=== PATIENT | male | born 1985 | race Two or more races ===

== ENCOUNTER 2023-09-21 12:58 | Outpatient (AMB) | payer OTHER, SELFPAY ==
--- NOTE | 2023-09-21 13:04 | HO.NEPHOV_ITS ---
HPI HPI Comments History of Present Illness Details I had the privilege of seeing Anthony who is a 38-year-old male with hypertension for well over 10 years. He is currently taking amlodipine 10 mg, carvedilol 12.5 mg twice, hydrochlorothiazide 25 mg and lisinopril 40 mg daily. Has been following current regimen for the past 10 years and tolerating well without side effects. He gets occasional headaches but denies blurry vision, chest pain, shortness of breath, edema or renal dysfunction. He had gained some weight. He is not very strict with low sodium diet. He checks blood pressure at home and is ranging from 150s to 160s over 100s diastolic.He had Doppler of renal arteries which did not show any renal artery stenosis. His 24 hour urine aldosterone was not very high. He has mild protein in the urine. He has no LVH. He denies edema, SOB, PND, orthopnea, BRIAN, PAD, CHF, CVA or carotid stenosis. He denies using drugs especially cocaine. His renal functions are normal . His serum K has been low on HCTZ. His cortisol and TSH are normal. He denied any sl eep study yet. He had no other active complaint at the time of this office visit. [facility] Medical History (Updated 09/24/23 @ 20:57 by Stanley Sutherland MD) Essential (primary) hypertension Family History (Updated 09/21/23 @ 09:16 by Pretty Glasgow MA) Mother Hypertension Father Diabetes Heart disease Hypertension Sister Thyroid disorder Social History (Updated 09/21/23 @ 13:09 by Pretty Glasgow MA) Alcohol intake: never Patient Tobacco Use Status: Never used Tobacco Substance Use Type: Marijuana Vital Signs 09/21/23 13:09 Height 5 ft 9 in Weight 254 lb 8 oz BMI 37.6 BP 122/90 H Blood Pressure Location Lt brachial Position Sitting Pulse 81 Pulse Source Pulse Oximeter Physical Exam Vital Signs: Last Vital Signs Pulse 81 09/21/23 13:09 BP 122/90 H 09/21/23 13:09 BMI result Body Mass Index 37.6 Const General: comfortable and no acute distress Orientation/consciousness: patient oriented x3 HEENT Head: Yes normocephalic Mouth: Normal oral and palatal mucosa present Eyes EOM: EOMs intact bilaterally Neck Neck: Yes supple Resp Auscultation: clear to auscultation bilaterally Cardio Jugular venous distension: no JVD Rate: regular rate GI Palpation (GI): Soft to palpation Auscultation: normal bowel sounds General: Yes no CVA tenderness Back/Spine/Pelvis Back: no CVA tenderness Skin General skin exam: no rashes or lesions noted Neuro General: patient oriented x3 and moves all extremities Extrem General: Yes no pedal edema Assessment & Plan Assessment & Plan (1) Hypertension: Code(s): I10 - Essential (primary) hypertension Qualifiers: Hypertension type: primary hypertension Qualified Code(s): I10 - Esse ntial (primary) hypertension Plan Low sodium diet; Weight loss; C/W current dose of antihypertensive medications for now. Work up ordered Will benefit from sleep study. Once work up is complete, if indicated, he may need adrenal imaging/AV sampling Shall order a 24 hour BP monitor through my office during the future follow up visits. Will add Spironolactone if BP remains high Answered all questions. Accounts Payable Bookkeeper service used. Follow up given. Time spent retrieving all data, patient encounter, documentation 43 minutes. Orders: Orders Catecholamines, Frac., 24Ur 09/21/23 I10 - Essential (primary) hypertension VMA 09/21/23 I10 - Essential (primary) hypertension Aldost/Renin 09/21/23 I10 - Essential (primary) hypertension Aldosterone, 24Hr Urine 09/21/23 I10 - Essential (primary) hypertension Cortisol, Free 24Hr Urine 09/21/23 I10 - Essential (primary) hypertension Metanephrines, 24hr Urine 09/21/23 I10 - Essential (primary) hypertension Renin 09/21/23 I10 - Essential (primary) hypertension Cortisol Random 09/21/23 I10 - Essential (primary) hypertension Aldosterone 09/21/23 I10 - Essential (primary) hypertension Coding Level of Care Code New Pt Level 4 (01845) Diagnoses Primary hypertension I10 Hypertension type: primary hypertension
[2023-09-21 13:09] VITALS: BP 122/90; PULSE 81; BMI 37.6
== END 2023-09-21 14:17 | disposition home or self-care (01) ==
PROVIDERS: PCP Internal Medicine; Visit Provider Internal Medicine Nephrology
DX: I10 Essential (primary) hypertension (principal)
CPT/HCPCS: 99204

== ENCOUNTER → 2023-09-21 12:58 | Outpatient (BNVA) | payer OTHER, SELFPAY | PROVIDERS: PCP Internal Medicine; Visit Provider Internal Medicine Nephrology | DX: I10 Essential (primary) hypertension (principal); Z82.49 Family history of ischemic heart disease and other diseases of the circulatory system | CPT/HCPCS: 99202 ==

== ENCOUNTER 2023-10-12 13:26 | Outpatient (AMB) | payer OTHER, SELFPAY ==
--- NOTE | 2023-10-12 13:55 | HO.NEPHOV_ITS ---
HPI HPI Comments History of Present Illness Details I had the privilege of seeing Atnhony in follow up. He is a a 38-year-old male with hypertension for well over 10 years. He had been taking amlodipine 10 mg, carvedilol 12.5 mg twice, hydrochlorothiazide 25 mg and li sinopril 40 mg daily. Has been following current regimen for the past 10 years and tolerating well without side effects. He gets occasional headaches but denies blurry vision, chest pain, shortness of breath, edema or renal dysfunction. He had gained some weight. He is not very strict with low sodium diet. He checks blood pressure at home and is ranging from 150s to 160s over 100s diastolic.He had Doppler of renal arteries which did not show any renal artery stenosis. His 24 hour urine aldosterone was not very high. He has mild protein in the urine. He has no LVH. He denies edema, SOB, PND, orthopnea, BRIAN, PAD, CHF, CVA or carotid stenosis. He denies using drugs especially cocaine. His renal functions are normal . His serum K has been low on HCTZ. His cortisol and TSH are normal. He denied any sleep study yet. He had no other active complaint at the time of this office visit. [facility] Medical History (Updated 09/24/23 @ 20:57 by Stanley Sutherland MD) Essential (primary) hypertension Family History (Updated 09/21/23 @ 09:16 by Pretty Glasgow MA) Mother Hypertension Father Diabetes Heart disease Hypertension Sister Thyroid disorder Social History (Updated 09/21/23 @ 13:09 by Pretty Glasgow MA) Alcohol intake: never Patient Tobacco Use Status: Never used Tobacco Substance Use Type: Marijuana Vital Signs 10/12/23 13:57 Height 5 ft 9 in Weight 251 lb 8 oz BMI 37.1 BP 140/110 H Blood Pressure Location Lt brachial Position Sitting Pulse 76 Pulse Source Pulse Oximeter Pulse Oximetry (%) 96 Oxygen Delivery Method Room Air Physical Exam Vital Signs: Last Vital Signs Pulse 76 10/12/23 13:57 BP 140/110 H 10/12/23 13:57 Pulse Ox 96 10/12/23 13:57 Oxygen Delivery Method Room Air 10/12/23 13:57 BMI result Body Mass Index 37.1 Const General: comfortable and no acute distress Orientation/consciousness: patient oriented x3 HEENT Head: Yes normocephalic Mouth: Normal oral and palatal mucosa present Eyes EOM: EOMs intact bilaterally Neck Neck: Yes supple Resp Auscultation: clear to auscultation bilaterally Cardio Jugular venous distension: no JVD Rate: regular rate GI Palpation (GI): Soft to palpation Auscultation: normal bowel sounds General: Yes no CVA tenderness Back/Spine/Pelvis Back: no CVA tenderness Skin General skin exam: no rashes or lesions noted Neuro General: patient oriented x3 and moves all extremities Extrem General: Yes no pedal edema Assessment & Plan Assessment & Plan (1) Hypertension: Code(s): I10 - Essential (primary) hypertension Qualifiers: Hypertension type: primary hypertension Qualified Code(s): I10 - Essential (primary) hypertension Plan Low sodium diet; Weight loss; C/W current dose of antihypertensive medications for now. Reviewed work up. Some results are still pending. Started him on Spironolactone 25 mg daily.Will benefit from sleep study. Once work up is complete, if indicated, he may need adrenal imaging/AV sampling. Shall order a 24 hour BP monitor through my office during the future follow up visits. Will increase Spironolactone if BP remains high. Answered all questions. Paperhanger Assistant service used. Follow up lab ordered; F/U given. Orders: Orders Creatinine Today I10 - Essential (primary) hypertension Blood Urea Nitrogen Today I10 - Essential (primary) hypertension Electrolytes Today I10 - Essential (primary) hypertension Medications: New spironolactone 25 mg PO DAILY 30 tabs 3RF 30 days Coding Level of Care Code Est Pt Level 4 (86655) Diagnoses Primary hypertension I10 Hypertension type: primary hypertension Results Reviewed Nephrology Results: No Data to Display
[2023-10-12 13:57] VITALS: BP 140/110; PULSE 76; O2SAT 96; BMI 37.1
== END 2023-10-12 14:18 | disposition home or self-care (01) ==
PROVIDERS: PCP Internal Medicine; Visit Provider Internal Medicine Nephrology
DX: I10 Essential (primary) hypertension (principal)
CPT/HCPCS: 99214

== ENCOUNTER → 2023-10-12 13:26 | Outpatient (BNVA) | payer OTHER, SELFPAY | PROVIDERS: PCP Internal Medicine; Visit Provider Internal Medicine Nephrology | DX: I10 Essential (primary) hypertension (principal) | CPT/HCPCS: 99212 ==

== ENCOUNTER 2023-10-28 13:04 | Outpatient (REF) | payer OTHER, SELFPAY | END 2023-10-28 13:05 | disposition home or self-care (01) | LOC: HO.HKASLDS 13:04 | PROVIDERS: Visit Provider Internal Medicine Nephrology | DX: I10 Essential (primary) hypertension (principal) | CPT/HCPCS: 36415; 80051; 82565; 84520 ==

== ENCOUNTER 2023-11-10 14:28 | Outpatient (AMB) | payer OTHER, SELFPAY ==
[2023-11-10 14:30] VITALS: BP 134/90; PULSE 95; O2SAT 96; BMI 37.0
--- NOTE | 2023-11-10 14:30 | HO.NEPHOV ---
HPI HPI Comments History of Present Illness Details I had the privilege of seeing Anthony in follow up. He is a a 38-year-old male with hypertension for well over 10 years. He had been taking amlodipine 10 mg, carvedilol 12.5 mg twice, hydrochlorothiazide 25 mg and lisinopril 40 mg daily. Has been following current regimen for the past 10 years and tolerating well without side effects. He had gained some weight. He is not very strict with low sodium diet. He checks blood pressure at home and had been ranging from 150s to 160s over 100s diastolic.He had Doppler of renal arteries which did not show any renal artery stenosis. His 24 hour urine aldosterone was not very high. He has mild protein in the urine. He has no LVH. He denies edema, SOB, PND, orthopnea, BRIAN, PAD, CHF, CVA or carotid stenosis. He denies using drugs especially cocaine. His renal functions are normal . His serum K has been low on HCTZ. His cortisol and TSH are normal. He denied any sleep study yet. His BP has been better controlled since initiation of Spironolactone. He had no other active complaint at the time of this office visit [facility] Medical History (Updated 09/24/23 @ 20:57 by Stanley Sutherland MD) Essential (primary) hypertension Family History Mother Hypertension Father Diabetes Heart disease Hypertension Sister Thyroid disorder Social History Alcohol intake: never Patient Tobacco Use Status: Never used Tobacco Substance Use Type: Marijuana Vital Signs 11/10/23 14:30 11/10/23 14:44 Height 5 ft 9 in Weight 250 lb 6 oz BMI 37.0 BP 134/90 H 122/84 Blood Pressure Location Lt brachial Position Sitting Pulse 95 Pulse Source Pulse Oximeter Pulse Oximetry (%) 96 Oxygen Delivery Method Room Air Physical Exam Vital Signs: Last Vital Signs Pulse 95 11/10/23 14:30 BP 122/84 11/10/23 14:44 Pulse Ox 96 11/10/23 14:30 Oxygen Delivery Method Room Air 11/10/23 14:30 BMI result Body Mass Index 37.0 Const General: comfortable and no acute distress Orientation/consciousness: patient oriented x3 HEENT Head: Yes normocephalic Mouth: Normal oral and palatal mucosa present Eyes EOM: EOMs intact bilaterally Neck Neck: Yes supple Resp Auscultation: clear to auscultation bilaterally Cardio Jugular venous distension: no JVD Rate: regular rate GI Palpation (GI): Soft to palpation Auscultation: normal bowel sounds General: Yes no CVA tenderness Back/Spine/Pelvis Back: no CVA tenderness Skin General skin exam: no rashes or lesions noted Neuro General: patient oriented x3 and moves all extremities Extrem General: Yes no pedal edema Assessment & Plan Assessment & Plan (1) Hypertension: Code(s): I10 - Essential (primary) hypertension Qualifiers: Hypertension type: primary hypertension Qualified Code(s): I10 - Essential (primary) hypertension Plan Low sodium diet; Weight loss; C/W current dose of antihypertensive medications for now. Reviewed work up. C/W Spironolactone 25 mg daily.Will benefit from sleep study. No need adrenal imaging/AV sampling now. Shall order a 24 hour BP monitor through my office during the future follow up visits. Will increase Spironolactone and will cut back on some other medications at the next visit. Answered all questions. Kindergarten Teacher Assistant service used. Follow up lab ordered; F/U given Orders: Orders Electrolytes Today I10 - Essential (primary) hypertension Blood Urea Nitrogen Today I10 - Essential (primary) hypertension Creatinine Today I10 - Essential (primary) hypertension Coding Level of Care Code Est Pt Level 3 (26697) Diagnoses Primary hypertension I10 Hypertension type: primary hypertension Results Reviewed Nephrology Results: Sodium 140 mmol/L (135-145) 10/28/23 Potassium 3.7 mmol/L (3.3-5.1) 10/28/23 Chloride 103 mmol/L (96-108) 10/28/23 Carbon Dioxide 29 mmol/L (22-29) 10/28/23 BUN 11 mg/dL (9-16) 10/28/23 Creatinine 0.95 mg/dL (0.5-1.4) 10/28/23
[2023-11-10 14:44] VITALS: BP 122/84
== END 2023-11-10 14:48 | disposition home or self-care (01) ==
PROVIDERS: PCP Internal Medicine; Visit Provider Internal Medicine Nephrology
DX: I10 Essential (primary) hypertension (principal)
CPT/HCPCS: 99213

== ENCOUNTER → 2023-11-10 14:28 | Outpatient (BNVA) | payer OTHER, SELFPAY | PROVIDERS: PCP Internal Medicine; Visit Provider Internal Medicine Nephrology | DX: I10 Essential (primary) hypertension (principal); Z79.899 Other long term (current) drug therapy | CPT/HCPCS: 99212 ==

== ENCOUNTER 2024-02-03 13:33 | Outpatient (REF) | payer OTHER, SELFPAY ==
[2024-02-03 17:48] LABS: Anion Gap 14 (12-20); Blood Urea Nitrogen 16 mg/dL (9-16); Carbon Dioxide 26 mmol/L (22-29); Chloride 105 mmol/L (96-108); Estimated Glomerular Filt Rate > 60; Potassium 4.2 mmol/L (3.3-5.1); Sodium 141 mmol/L (135-145)
== END 2024-02-03 13:34 | disposition home or self-care (01) ==
LOC: HO.HKASLDS 13:33
PROVIDERS: Visit Provider Internal Medicine Nephrology
DX: I10 Essential (primary) hypertension (principal)
CPT/HCPCS: 36415; 80051; 82565; 84520

== ENCOUNTER 2024-02-11 13:42 | Outpatient (AMB) | payer OTHER, SELFPAY ==
--- NOTE | 2024-02-11 14:20 | HO.NEPHOV_ITS ---
Vital Signs 02/11/24 14:22 Height 5 ft 9 in Weight 252 lb 2 oz BMI 37.2 BP 120/80 Blood Pressure Location Lt brachial Position Sitting Pulse 73 Pulse Source Pulse Oximeter Pulse Oximetry (%) 94 Oxygen Delivery Method Room Air Intake Visit Reasons: 3M follow up/ Confirmed Oracle Forms Developer Required: Yes Accompanied by: Self / Same As Patient Allergies No Known Allergies Allergy (Verified 02/11/24 14:23) HPI Comments Details: I had the privilege of seeing Anthony in follow up. He is a a 38-year-old male with hypertension for well over 10 years. He had been taking amlodipine 10 mg, carvedilol 12.5 mg twice, hydrochlorothiazide 25 mg and lisinopril 40 mg daily. Has been following current regimen for the past 10 years and tolerating well without side effects. He had gained some weight. He is not very strict with low sodium diet. He checks blood pressure at home and had been ranging from 150s to 160s over 100s diastolic.He had Doppler of renal arteries which did not show any renal artery stenosis. His 24 hour urine aldosterone was not very high. He has mild protein in the urine. He has no LVH. He denies edema, SOB, PND, orthopnea, BRIAN, PAD, CHF, CVA or carotid stenosis. He denies using drugs especially cocaine. His renal functions are normal . His serum K has been low on HCTZ. His cortisol and TSH are normal. He denied any sleep study yet. His BP has been better controlled since initiation of Spironolactone. He had no other active complaint at the time of this office visit [facility] Medical History (Updated 09/24/23 @ 20:57 by Stanley Sutherland MD) Essential (primary) hypertension Family History Mother Hypertension Father Diabetes Heart disease Hypertension Sister Thyroid disorder Social History Alcohol intake: never Patient Tobacco Use Status: Never used Tobacco Substance Use Type: Marijuana Physical Exam Vital Signs: Last Vital Signs Pulse 73 02/11/24 14:22 BP 130/88 02/11/24 14:22 Pulse Ox 94 02/11/24 14:22 Oxygen Delivery Method Room Air 02/11/24 14:22 BMI result Body Mass Index 37.2 Const General: comfortable and no acute distress Orientation/consciousness: patient oriented x3 HEENT Head: Yes normocephalic Mouth: Normal oral and palatal mucosa present Eyes EOM: EOMs intact bilaterally Neck Neck: Yes supple Resp Auscultation: clear to auscultation bilaterally Cardio Jugular venous distension: no JVD Rate: regular rate GI Palpation (GI): Soft to palpation Auscultation: normal bowel sounds General: Yes no CVA tenderness Back/Spine/Pelvis Back: no CVA tenderness Skin General skin exam: no rashes or lesions noted Neuro General: patient oriented x3 and moves all extremities Extrem General: Yes no pedal edema Results Reviewed Nephrology Results: Sodium 141 mmol/L (135-145) 02/03/24 Potassium 4.2 mmol/L (3.3-5.1) 02/03/24 Chloride 105 mmol/L (96-108) 02/03/24 Carbon Dioxide 26 mmol/L (22-29) 02/03/24 BUN 16 mg/dL (9-16) 02/03/24 Creatinine 0.99 mg/dL (0.5-1.4) 02/03/24 Assessment & Plan Assessment & Plan (1) Hypertension: Code(s): I10 - Essential (primary) hypertension Category: Medical Qualifiers: Hypertension type: primary hypertension Qualified Code(s): I10 - Essential (primary) hypertension Plan Low sodium diet; Weight loss; C/W current dose of antihypertensive medications for now. Reviewed work up. /W Spironolactone 25 mg daily.Will benefit from sleep study. Shall order a 24 hour BP monitor through my office during the future follow up visits, if his BP fluctuates. Will increase Spironolactone if BP remains high. Answered all questions. Follow up lab ordered; F/U given Orders: Orders Electrolytes Today I10 - Essential (primary) hypertension Creatinine Today I10 - Essential (primary) hypertension Blood Urea Nitrogen Today I10 - Essential (primary) hypertension
[2024-02-11 14:22] VITALS: BP 120/80; PULSE 73; O2SAT 94; BMI 37.2
== END 2024-02-11 14:36 | disposition home or self-care (01) ==
PROVIDERS: PCP Internal Medicine; Visit Provider Internal Medicine Nephrology
DX: I10 Essential (primary) hypertension (principal)
CPT/HCPCS: 99214

== ENCOUNTER → 2024-02-11 13:42 | Outpatient (BNVA) | payer OTHER, SELFPAY | PROVIDERS: PCP Internal Medicine; Visit Provider Internal Medicine Nephrology | DX: I10 Essential (primary) hypertension (principal) | CPT/HCPCS: 99212 ==

== ENCOUNTER 2024-06-01 12:59 | Outpatient (REF) | payer OTHER, SELFPAY ==
[2024-06-01 18:10] LABS: Anion Gap 12 (12-20); Blood Urea Nitrogen 14 mg/dL (9-16); Carbon Dioxide 28 mmol/L (22-29); Chloride 105 mmol/L (96-108); Estimated Glomerular Filt Rate > 60; Sodium 141 mmol/L (135-145)
== END 2024-06-01 13:00 | disposition home or self-care (01) ==
LOC: HO.HKASLDS 12:59
PROVIDERS: Visit Provider Internal Medicine Nephrology
DX: I10 Essential (primary) hypertension (principal)
CPT/HCPCS: 36415; 80051; 82565; 84520

== ENCOUNTER 2024-06-09 13:07 | Outpatient (AMB) | payer OTHER, SELFPAY ==
--- NOTE | 2024-06-09 13:44 | HO.NEPHOV_ITS ---
Vital Signs 06/09/24 13:45 Height 5 ft 9 in Weight 251 lb 4 oz BMI 37.1 BP 120/80 Blood Pressure Location Lt brachial Position Sitting Pulse 75 Pulse Source Pulse Oximeter Pulse Oximetry (%) 97 Oxygen Delivery Method Room Air Intake Visit Reasons: 4 mon follow up/ Conf Telephone Betting Clerk Required: Yes Telephone Betting Clerk Services: Telephone Betting Clerk Present Telephone Betting Clerk Name: [id number] Information Interpreted: clinical only Accompanied by: Self / Same As Patient Allergies No Known Allergies Allergy (Verified 06/09/24 13:47) HPI Comments Details: I had the privilege of seeing Anthony in follow up. He is a a 38-year-old male with hypertension for well over 10 years. He had been taking amlodipine 10 mg, carvedilol 12.5 mg twice, hydrochlorothiazide 25 mg and lisinopril 40 mg daily. Has been following current regimen for the past 10 years and tolerating well without side effects. He had gained some weight. He is not very strict with low sodium diet. He checks blood pressure at home and had been ranging from 150s to 160s over 100s diastolic.He had Doppler of renal arteries which did not show any renal artery stenosis. His 24 hour urine aldosterone was not very high. He has mild protein in the urine. He has no LVH. He denies edema, SOB, PND, orthopnea, BRIAN, PAD, CHF, CVA or carotid stenosis. He denies using drugs especially cocaine. His renal functions are normal . His serum K has been low on HCTZ. His cortisol and TSH are normal. He denied any sleep study yet. His BP has been better controlled since initiation of Spironolactone. He had no other active complaint at the time of this office visit [facility] Medical History (Updated 09/24/23 @ 20:57 by Stanley Sutherland MD) Essential (primary) hypertension Family History Mother Hypertension Father Diabetes Heart disease Hypertension Sister Thyroid disorder Social History Alcohol intake: never Patient Tobacco Use Status: Never used Tobacco Substance Use Type: Marijuana Review of Systems Const All systems reviewed & are unremarkable except as noted in HPI and below Physical Exam Vital Signs: Last Vital Signs Pulse 75 06/09/24 13:45 BP 132/90 H 06/09/24 13:45 Pulse Ox 97 06/09/24 13:45 Oxygen Delivery Method Room Air 06/09/24 13:45 BMI result Body Mass Index 37.1 Const General: comfortable and no acute distress Orientation/consciousness: patient oriented x3 HEENT Head: Yes normocephalic Mouth: Normal oral and palatal mucosa present Eyes EOM: EOMs intact bilaterally Neck Neck: Yes supple Resp Auscultation: clear to auscultation bilaterally Cardio Jugular venous distension: no JVD Rate: regular rate GI Palpation (GI): Soft to palpation Auscultation: normal bowel sounds General: Yes no CVA tenderness Back/Spine/Pelvis Back: no CVA tenderness Skin General skin exam: no rashes or lesions noted Neuro General: patient oriented x3 and moves all extremities Extrem General: Yes no pedal edema Results Reviewed Nephrology Results: Sodium 141 mmol/L (135-145) 06/01/24 Potassium 4.0 mmol/L (3.3-5.1) 06/01/24 Chloride 105 mmol/L (96-108) 06/01/24 Carbon Dioxide 28 mmol/L (22-29) 06/01/24 BUN 14 mg/dL (9-16) 06/01/24 Creatinine 0.94 mg/dL (0.5-1.4) 06/01/24 Assessment & Plan Assessment & Plan (1) Hypertension: Code(s): I10 - Essential (primary) hypertension Category: Medical Qualifiers: Hypertension type: primary hypertension Qualified Code(s): I10 - Essential (primary) hypertension Plan Low sodium diet; Weight loss; C/W current dose of antihypertensive medications for now. Reviewed all the work up. C/W Spironolactone 25 mg daily along with rest of his current medications .Will benefit from sleep study. Shall order a 24 hour BP monitor through my office during the future follow up visits, if his BP fluctuates. Will increase Spironolactone if BP remains high. Answered all questions. Follow up lab ordered; F/U given Orders: Orders Creatinine Today I10 - Essential (primary) hypertension Electrolytes Today I10 - Essential (primary) hypertension Calcium Today I10 - Essential (primary) hypertension Blood Urea Nitrogen Today I10 - Essential (primary) hypertension Coding Level of Care Code Est Pt Level 4 (07092) Diagnoses Primary hypertension I10 Hypertension type: primary hypertension
[2024-06-09 13:45] VITALS: BP 120/80; PULSE 75; O2SAT 97; BMI 37.1
== END 2024-06-09 14:11 | disposition home or self-care (01) ==
PROVIDERS: PCP Internal Medicine; Visit Provider Internal Medicine Nephrology
DX: I10 Essential (primary) hypertension (principal)
CPT/HCPCS: 99214

== ENCOUNTER → 2024-06-09 13:07 | Outpatient (BNVA) | payer OTHER, SELFPAY | PROVIDERS: PCP Internal Medicine; Visit Provider Internal Medicine Nephrology | DX: I10 Essential (primary) hypertension (principal) | CPT/HCPCS: 99212 ==

== ENCOUNTER 2024-11-29 15:58 | Outpatient (REF) | payer OTHER, SELFPAY ==
[2024-11-29 18:19] LABS: Anion Gap 15 (12-20); Blood Urea Nitrogen 13 mg/dL (9-16); Calcium 9.2 mg/dL (8.4-10.2); Carbon Dioxide 27 mmol/L (22-29); Chloride 105 mmol/L (96-108); Estimated Glomerular Filt Rate > 60; Potassium 3.6 mmol/L (3.3-5.1); Sodium 143 mmol/L (135-145)
== END 2024-11-29 15:59 | disposition home or self-care (01) ==
LOC: HO.HKASLDS 15:58
PROVIDERS: Visit Provider Internal Medicine Nephrology
DX: I10 Essential (primary) hypertension (principal)
CPT/HCPCS: 36415; 80051; 82310; 82565; 84520

== ENCOUNTER 2024-12-08 13:14 | Outpatient (AMB) | payer OTHER, SELFPAY ==
--- OUTSIDE RECORDS SUMMARY | 2024-12-08 13:23 | XMS_ITS | Clinical Summary ---
Author Organization [facility] Address [address] [place] [address] Phone Care Team Providers Care Automatic Toe Laster Name Role Phone Physician, No Pcp Primary Care Provider Unavaila ble Allergies No known active allergies Encounters Date Type Department Care Team Description 10/21/2024 12:56 AM EST - 10/21/2024 7:42 AM EST Emergency [facility] [address] [place] [address] Erendira Molina DO Gastroenteritis (Primary Dx) Discharge Disposition: Home or Self Care from Last 3 Months Social History Tobacco Use Types Packs/Day Years Used Date Smoking Tobacco: Never Assessed Sex and Gender Information Value Date Recorded Sex Assigned at Not on file Legal Sex Male 10:45 PM EST Gender Identity Not on file Sexual Orientation Not on file Obstetrics History Last Filed Vital Signs Vital Sign Reading Time Taken Comments Blood Pressure 140/90 10/21/2024 4:50 AM EST Pulse 97 10/21/2024 4:50 AM EST Temperature 37.3 ??C (99.1 ??F) 10/21/2024 4:50 AM ES T Respiratory Rate 18 10/21/2024 4:50 AM EST Oxygen Saturation 98% 10/21/2024 4:50 AM EST Inhaled Oxygen Concentration - - Weight 113 kg (250 lb) 10/20/2024 11:25 PM EST Height 175.3 cm (5' 9 ) 10/20/2024 11:25 PM EST Body Mass Index 36.92 10/20/2024 11:25 PM EST Plan of Treatment Health Maintenance Due Date Last Done Comments DTaP,Tdap,and Td Vaccines (1 - Tdap) 2005 Hepatitis B Vaccines (1 of 3 - 19+ 3-dose series) 2005 COVID-19 Vaccine (2023-2 5 season) 2024 Influenza Vaccine (#1) 2024 Cholesterol Screening (Lipid Panel) 10/21/2024 Depression Screening 10/21/2024 HIV Screening 10/21/2024 Hepatitis C Screening 10/21/2024 Social Influencers of Health Screening 10/21/2024 HIB Vaccines Aged Out No longer eligi ble based on patient's age to complete this topic HPV Vaccines Aged Out No longer eligi ble based on patient's age to complete this topic Hepatitis A Vaccines Aged Out No long er eligible based on patient's age to complete this topic IPV Vaccines Aged Out No longer eligi ble based on patient's age to complete this topic MMR Vaccines Aged Out No longer eligi ble based on patient's age to complete this topic Meningococcal ACWY Vaccine Aged Out N o longer eligible based on patient's age to complete this topic Pneumococcal Vaccine: Pediat rics (0 to 5 Years) and At-Risk Patients (6 to 64 Years) Aged Out No longer eligible b ased on patient's age to complete this topic RSV Immunization Patients Un marizol 20 months Aged Out No longer eligible b ased on patient's age to complete this topic Varicella Vaccines Aged Out No longer eligible based on patient's age to complete this topic Procedures Procedure Name Priority Date/Time Associated Diagnosis Comments LACTATE STAT 10/21/2024 6:[address] ABDOMEN PELVIS W CONTRAST STAT 10/21/2024 2:28 AM EST LACTATE STAT 10/21/2024 1:57 AM EST MANUAL DIFFERENTIAL - SYSMEX WAM STAT 10/20/2024 11:36 PM EST CBC WITH AUTO DIFFERENTIAL STAT 10/20/2024 11:36 PM EST LIPASE STAT 10/20/2024 11:36 PM EST MAGNESIUM STAT 10/20/2024 11:36 PM EST COMPREHENSIVE METABOLIC PANEL STAT 10/20/2024 11:36 PM EST CBC AND DIFFERENTIAL STAT 10/20/2024 11:36 PM EST from Last 3 Months Results * (ABNORMAL) Lactate (10/21/2024 6:16 AM EST) Only the most recent of2 resultswithin the time period is included. Lactate 2.7(H) 0.4 - 2.0 mmol/L LAB CHEMISTRY METHOD 10/21/2024 6:51 AM EST [facility] Blood Venous blood specimen / Unknown Venipuncture / Unknown 10/21/2024 6:16 AM EST 10/21/2024 6:27 AM EST us Erendira Molina DO LAB BLOOD ORDERABLES Coleen l Result [facility] [address] [place] [address], [place] [phone] * CT Abdomen Pelvis w Contrast (10/21/2024 2:28 AM EST) Anatomical Region Laterality Modality Body Computed Tomogra phy 10/21/2024 5:55 AM EST Impressions 10/21/2024 5:55 AM EST 1. Intraluminal fluid within the mid and distal small bowel. Long segment of the colon also contains intraluminal fluid which extends to the distal rectum/anus. Favor diarrheal based illness or enterocolitis. 2. Hepatomegaly and mild hepatic steatosis. 3. Small nonobstructing left nephrolithiasis measuring 1-2 mm. 4. Scattered colonic diverticula without diverticulitis 5. Normal appendix. This document has been electronically signed by: Leo Guevara DO on 10/21/2024 05:55:10 Narrative 10/21/2024 5:[address] abdomen and pelvis with contrast Comparison: None Findings: Subsegmental atelectasis of the lung bases. Visualized cardiac apex demonstrates cardiomegaly. The abdominal aorta is unremarkable. Hepatomegaly and mild hepatic steatosis. The gallbladder, pancreas, spleen, adrenal glands are all unremarkable. The right kidney is normal. Small nonobstructing left nephrolithiasis measuring up to 1-2 mm. Small cortical cysts of the bilateral kidneys. Tiny umbilical hernia containing fat. The urinary bladder is nondistended. Pelvic contents unremarkable. Scattered colonic diverticula without diverticulitis. Intraluminal fluid within the mid and distal small bowel. Long segment of the colon also contains intraluminal fluid which extends to the distal rectum/anus. Favor diarrheal based illness or enterocolitis. No bowel obstruction, pneumoperitoneum, or pneumatosis. Normal appendix. The bones are intact. Degenerative changes of the lumbar spine. Procedure Note Leo Guevara MD - 10/21/2024 CT abdomen and pelvis with contrast Comparison: None Findings: Subsegmental atelectasis of the lung bases. Visualized cardiac apex demonstrates cardiomegaly. The abdominal aorta is unremarkable. Hepatomegaly and mild hepatic steatosis. The gallbladder, pancreas, spleen, adrenal glands are all unremarkable. The right kidney is normal. Small nonobstructing left nephrolithiasis measuring up to 1-2 mm. Small cortical cysts of the bilateral kidneys. Tiny umbilical hernia containing fat. The urinary bladder is nondistended. Pelvic contents unremarkable. Scattered colonic diverticula without diverticulitis. Intraluminal fluid within the mid and distal small bowel. Long segmentof the colon also contains intraluminal fluid which extends to the distal rectum/anus. Favor diarrheal based illness or enterocolitis. No bowel obstruction, pneumoperitoneum, or pneumatosis. Normal appendix. The bones are intact. Degenerative changes of the lumbar spine. IMPRESSION: 1. Intraluminal fluid within the mid and distal small bowel. Longsegment of the colon also contains intraluminal fluid which extends to thedistal rectum/anus. Favor diarrheal based illness or enterocolitis. 2. Hepatomegaly and mild hepatic steatosis. 3. Small nonobstructing left nephrolithiasis measuring 1-2 mm. 4. Scattered colonic diverticula without diverticulitis 5. Normal appendix. This document has been electronically signed by: Leo Guevara DO on 10/21/2024 05:55:10 Erendira Molina DO IMG CT PROCEDURES Final R esult * (ABNORMAL) Manual differential (10/20/2024 11:36 PM EST) Neutrophils % 90.0 % LAB HEMETOLOGY METHOD 10/21/2024 1:10 AM [facility] Bands % 5.0 % LAB HEMETOLOGY METHOD 10/21/2024 1:10 AM [facility] Lymphocytes % 0.0 % LAB HEMETOLOGY METHOD 10/21/2024 1:10 AM [facility] Monocytes % 5.0 % LAB HEMETOLOGY METHOD 10/21/2024 1:10 AM [facility] Eosinophils % 0.0 % LAB HEMETOLOGY METHOD 10/21/2024 1:10 AM [facility] Basophils % 0.0 % LAB HEMETOLOGY METHOD 10/21/2024 1:10 AM [facility] Neutrophils Absolute Manual 20.88(H) 1.50 - 7.00 K/mcL LAB HEMETOLOGY METHOD 10/21/2024 1:10 AM [facility] Bands Absolute Manual 1.16(H) 0.00 - 0.00 K/mcL LAB HEMETOLOGY METHOD 10/21/2024 1:10 AM [facility] Lymphocytes Absolute 0.00(L) 1.00 - 5.00 K/mcL LAB HEMETOLOGY METHOD 10/21/2024 1:10 AM [facility] Monocytes Absolute Manual 1.16(H) 0.20 - 1.00 K/mcL LAB HEMETOLOGY METHOD 10/21/2024 1:10 AM [facility] Eosinophils Absolute Manual 0.00 0.00 - 0.50 K/mcL LAB HEMETOLOGY METHOD 10/21/2024 1:10 AM [facility] Basophils Absolute Manual 0.00 0.00 - 0.20 K/mcL LAB HEMETOLOGY METHOD 10/21/2024 1:10 AM [facility] Rbc Morphology Consistent with indices Consistent with indices, Normal for LAB HEMETOLOGY METHOD 10/21/2024 1:10 AM [facility] Platelet Morphology - WAM Normal Normal LAB HEMETOLOGY METHOD 10/21/2024 1:10 AM [facility] Blood Venous blood specimen / Unknown Venipuncture / Unknown 10/20/2024 11:36 PM EST 10/20/2024 11:42 PM EST Erendira Damon Jose Jesse DO LAB BLOOD ORDERABLES Coleen l Result [facility] [address] [place] [address], * (ABNORMAL) CBC auto differential (10/20/2024 11:36 PM EST) WBC 23.2(H) 4.8 - 10.8 K/mcL LAB HEMETOLOGY METHOD 10/21/2024 1:10 AM [facility] RBC 5.20 4.50 - 5.50 M/[facility] LAB HEMETOLOGY METHOD 10/21/2024 1:10 AM [facility] Hemoglobin 16.1 13.5 - 17.5 g/dL LAB HEMETOLOGY METHOD 10/21/2024 1:10 AM [facility] Hematocrit 45.7 42.0 - 54.0 % LAB HEMETOLOGY METHOD 10/21/2024 1:10 AM [facility] MCV 88.4 79.0 - 98.0 FL LAB HEMETOLOGY METHOD 10/21/2024 1:10 AM [facility] MCH 31.1 27.0 - 32.0 pcg LAB HEMETOLOGY METHOD 10/21/2024 1:10 AM [facility] MCHC 35.2 32.0 - 37.0 g/dL LAB HEMETOLOGY METHOD 10/21/2024 1:10 AM [facility] RDW 12.5 11.0 - 15.0 % LAB HEMETOLOGY METHOD 10/21/2024 1:10 AM EST [facility] Platelets 369 130 - 400 K/mcL LAB HEMETOLOGY METHOD 10/21/2024 1:10 AM [facility] MPV 9.5 7.0 - 11.0 FL LAB HEMETOLOGY METHOD 10/21/2024 1:10 AM EST [facility] NRBC 0.0 <1.0 % LAB HEMETOLOGY METHOD 10/21/2024 1:10 AM [facility] NRBC Absolute 0.00 <0.10 K/mcL LAB HEMETOLOGY METHOD 10/21/2024 1:10 AM [facility] Blood Venous blood specimen / Unknown Venipuncture / Unknown 10/20/2024 11:36 PM EST 10/20/2024 11:42 PM EST us [facility] Nelson Garcia Molina LAB BLOOD ORDERABLES Coleen l Result Performing Organization Address City/[facility]/ZIP Co de Phone Number [facility] [address] [place] [address], [place] [phone] * Magnesium (10/20/2024 11:36 PM EST) Magnesium 1.9 1.9 - 2.6 mg/dL LAB CHEMISTRY METHOD 10/21/2024 12:07 AM EST [facility] Blood Venous blood specimen / Unknown Venipuncture / Unknown 10/20/2024 11:36 PM EST 10/20/2024 11:42 PM EST Erednira Molina LAB BLOOD ORDERABLES Coleen l Result [facility] [address] [place] [address], [place] [phone] * Lipase (10/20/2024 11:36 PM EST) Lipase 24 13 - 75 unit/L LAB CHEMISTRY METHOD 10/21/2024 12:07 AM [facility] Blood Venous blood specimen / Unknown Venipuncture / Unknown 10/20/2024 11:36 PM EST 10/20/2024 11:42 PM EST us Erendira Molina DO LAB BLOOD ORDERABLES Coleen l Result [facility] [address] [place] [address], * (ABNORMAL) Comprehensive metabolic panel (10/20/2024 11:36 PM EST) Pathologist [facility] Sodium 140 133 - 145 mmol/L LAB CHEMISTRY METHOD 10/21/2024 12:07 AM [facility] Potassium 3.4(L) 3.5 - 5.5 mmol/L LAB CHEMISTRY METHOD 10/21/2024 12:07 AM [facility] Chloride 106 96 - 110 mmol/L LAB CHEMISTRY METHOD 10/21/2024 12:07 AM [facility] CO2 26 21 - 32 mmol/L LAB CHEMISTRY METHOD 10/21/2024 12:07 AM [facility] Anion Gap 8 3 - 11 LAB CHEMISTRY METHOD 10/21/2024 12:07 AM [facility] Glucose 119(H) 70 - 100 mg/dL LAB CHEMISTRY METHOD 10/21/2024 12:07 AM [facility] BUN 15 5 - 25 mg/dL LAB CHEMISTRY METHOD 10/21/2024 12:07 AM [facility] Creatinine 0.97 0.70 - 1.30 mg/dL LAB CHEMISTRY METHOD 10/21/2024 12:07 AM [facility] eGFR 102 >=60 mL/min/1. 73m2 LAB CHEMISTRY METHOD 10/21/2024 12:07 AM [facility] Comment:Calculation based on the??Chronic Kidney Disease Epidemiology Collaboration (CKD-EPI) equation refit??without adjustment for race. BUN/Creatinine Ratio 15.5 LAB CHEMISTRY METHOD 10/21/2024 12:07 AM [facility] Calcium 9.2 8.5 - 10.5 mg/dL LAB CHEMISTRY METHOD 10/21/2024 12:07 AM [facility] AST (SGOT) 23 10 - 42 unit/L LAB CHEMISTRY METHOD 10/21/2024 12:07 AM [facility] ALT (SGPT) 51 10 - 60 unit/L LAB CHEMISTRY METHOD 10/21/2024 12:07 AM [facility] Alkaline Phosphatase 106 42 - 121 unit/L LAB CHEMISTRY METHOD 10/21/2024 12:07 AM [facility] Total Protein 7.8 6.0 - 8.0 g/dL LAB CHEMISTRY METHOD 10/21/2024 12:07 AM [facility] Albumin 4.1 3.2 - 5.0 g/dL LAB CHEMISTRY METHOD 10/21/2024 12:07 AM [facility] Total Bilirubin 0.8 0.0 - 1.4 mg/dL LAB CHEMISTRY METHOD 10/21/2024 12:07 AM [facility] Blood Venous blood specimen / Unknown Venipuncture / Unknown 10/20/2024 11:36 PM EST 10/20/2024 11:42 PM EST us Erendira Molina DO LAB BLOOD ORDERABLES Coleen [email or web address] Result [facility] [address] [place] [address], [place] [phone] from Last 3 Months Insurance MEDICAID - [place] Care Teams Automatic Toe Laster Relationship Specialty Start Date End Date Physician, No Pcp PCP - General 10/21/24
--- NOTE | 2024-12-08 13:28 | HO.NEPHOV ---
Vital Signs 12/08/24 13:31 Height 5 ft 9 in Weight 263 lb 8 oz BMI 38.9 BP 120/90 H Blood Pressure Location Rt brachial Position Sitting Pulse 72 Pulse Source Pulse Oximeter Pulse Oximetry (%) 98 Oxygen Delivery Method Room Air Intake Visit Reasons: 6 mon follow up/ Conf Finance Controller Required: Yes Finance Controller Language: Material Handler Floorperson Services: Finance Controller Present Finance Controller Name: Placido [id number] Accompanied by: Self / Same As Patient Allergies No Known Allergies Allergy (Verified 12/08/24 13:31) HPI Comments Details: Anthony is a a 38-year-old male with hypertension for well over 10 years. He had been taking amlodipine 10 mg, carvedilol 12.5 mg twice, hydrochlorothiazide 25 mg and lisinopril 40 mg daily. Has been following current regimen for the past 10 years and tolerating well without side effects. He had gained some weight. He is not very strict with low sodium diet. He checks blood pressure at home and had been ranging from 150s to 160s over 100s diastolic.He had Doppler of renal arteries which did not show any renal artery stenosis. His 24 hour urine aldosterone was not very high. He has mild protein in the urine. He has no LVH. He denies edema, SOB, PND, orthopnea, BIRAN, PAD, CHF, CVA or carotid stenosis. He denies using drugs especially cocaine. His renal functions are normal . His serum K has been low on HCTZ. His cortisol and TSH are normal. He denied any sleep study yet. His BP has been better controlled since initiation of Spironolactone. He had no other active complaint at the time of this office visit [facility], [facility] Medical History (Updated 09/24/23 @ 20:57 by Stanley Sutherland MD) Essential (primary) hypertension Family History Mother Hypertension Father Diabetes Heart disease Hypertension Sister Thyroid disorder Social History Alcohol intake: never Patient Tobacco Use Status: Never used Tobacco Substance Use Type: Marijuana Physical Exam Vital Signs: Last Vital Signs Pulse 72 12/08/24 13:31 BP 120/90 H 12/08/24 13:31 Pulse Ox 98 12/08/24 13:31 Oxygen Delivery Method Room Air 12/08/24 13:31 BMI result Body Mass Index 38.9 Const General: comfortable and no acute distress Orientation/consciousness: patient oriented x3 HEENT Head: Yes normocephalic Mouth: Normal oral and palatal mucosa present Eyes EOM: EOMs intact bilaterally Neck Neck: Yes supple Resp Auscultation: clear to auscultation bilaterally Cardio Jugular venous distension: no JVD Rate: regular rate GI Palpation (GI): Soft to palpation Auscultation: normal bowel sounds General: Yes no CVA tenderness Back/Spine/Pelvis Back: no CVA tenderness Skin General skin exam: no rashes or lesions noted Neuro General: patient oriented x3 and moves all extremities Extrem General: Yes no pedal edema Results Reviewed Nephrology Results: Sodium 143 mmol/L (135-145) 11/29/24 Potassium 3.6 mmol/L (3.3-5.1) 11/29/24 Chloride 105 mmol/L (96-108) 11/29/24 Carbon Dioxide 27 mmol/L (22-29) 11/29/24 BUN 13 mg/dL (9-16) 11/29/24 Creatinine 0.89 mg/dL (0.5-1.4) 11/29/24 Calcium 9.2 mg/dL (8.4-10.2) 11/29/24 Assessment & Plan Assessment & Plan (1) Hypertension: Code(s): I10 - Essential (primary) hypertension Category: Medical Qualifiers: Hypertension type: primary hypertension Qualified Code(s): I10 - Essential (primary) hypertension Plan Low sodium diet; Weight loss; C/W current dose of antihypertensive medications for now. Reviewed all the work up. C/W Spironolactone 25 mg daily along with rest of his current medications .Will benefit from sleep study. Shall order a 24 hour BP monitor through my office during the future follow up visits, if his BP fluctuates. Will increase Spironolactone if BP remains high. Answered all questions. Follow up lab ordered; F/U given Orders: Orders Blood Urea Nitrogen 6 Months I10 - Essential (primary) hypertension Electrolytes 6 Months I10 - Essential (primary) hypertension Creatinine 6 Months I10 - Essential (primary) hypertension Calcium 6 Months I10 - Essential (primary) hypertension Medications: New amlodipine 10 mg PO DAILY 90 tabs 4RF hydrochlorothiazide 25 mg PO DAILY 90 tabs 3RF lisinopril 40 mg PO DAILY 90 tabs 3RF Changed From carvedilol must administer with a meal/food 25 mg PO BID To carvedilol must administer with a meal/food 25 mg PO BID 90 days 180 tabs 3RF Refilled spironolactone 25 mg PO DAILY 90 tabs 3RF Coding Level of Care Code Est Pt Level 4 (29189) Diagnoses Primary hypertension I10 Hypertension type: primary hypertension
[2024-12-08 13:31] VITALS: BP 120/90; PULSE 72; O2SAT 98; BMI 38.9
== END 2024-12-08 13:45 | disposition home or self-care (01) ==
PROVIDERS: PCP Internal Medicine; Visit Provider Internal Medicine Nephrology
DX: I10 Essential (primary) hypertension (principal)
CPT/HCPCS: 99214

== ENCOUNTER → 2024-12-08 13:14 | Outpatient (BNVA) | payer OTHER, SELFPAY | PROVIDERS: PCP Internal Medicine; Visit Provider Internal Medicine Nephrology | DX: I10 Essential (primary) hypertension (principal) | CPT/HCPCS: 99212 ==

== ENCOUNTER 2025-06-22 12:49 | Outpatient (REF) | payer OTHER, SELFPAY ==
--- OUTSIDE RECORDS SUMMARY | 2025-06-22 13:24 | XMS_ITS | Clinical Summary ---
Author Organization [facility] Address [address] [place] [phone] Phone Care Team Providers Care Process Control Specialist Name Role Phone Physician, No Pcp Primary Care Provider Unavaila ble Allergies No known active allergies Social History Tobacco Use Types Packs/Day Years [...] 97 10/21/2024 4:50 AM EST Temperature 37.3 C (99.1 F) 10/21/2024 4:50 AM EST Respiratory Rate 18 10/21/2024 4:50 AM EST [...] - 19+ 3-dose series) 2005 COVID-19 Vaccine ( - 2023-2 5 season) 2024 Cholesterol Screening (Lipid Panel) 10/21/2024 HIV Screening 10/21/2024 Hepatitis C Screening 10/21/2024 Social Influencers of Health Screening 10/21/2024 Depression Screening 10/26/2024 Influenza Vaccine (#1) 2025 HIB Vaccines Aged Out No longer eligi [...] patient's age to complete this topic Meningococcal B Vaccine Aged Out No l onger eligible based on patient's age to complete this topic Pneumococcal Vaccine: Pediat rics (0 to 5 Years) and At-Risk Patients (6 to 49 Years) Aged Out No longer eligible b ased on patient's age to complete this topic RSV Immunization Patients Un marizol 20 months Aged Out No longer eligible b ased on patient's age to complete this topic Varicella Vaccines Aged Out No longer eligible based on patient's age to complete this topic Insurance [place]ICA[place] - [place] Care Teams Process Control Specialist Relationship Specialty Start Date End Date Physician, No Pcp PCP - General 10/21/24
[2025-06-22 17:49] LABS: Anion Gap 13 (12-20); Blood Urea Nitrogen 14 mg/dL (9-16); Calcium 10.1 mg/dL (8.4-10.2); Carbon Dioxide 29 mmol/L (22-29); Chloride 101 mmol/L (96-108); Estimated Glomerular Filt Rate > 60; Potassium 4.3 mmol/L (3.3-5.1); Sodium 139 mmol/L (135-145)
== END 2025-06-22 12:50 | disposition home or self-care (01) ==
LOC: HO.HKASLDS 12:49
PROVIDERS: Visit Provider Internal Medicine Nephrology
DX: I10 Essential (primary) hypertension (principal)
CPT/HCPCS: 36415; 80051; 82310; 82565; 84520

== ENCOUNTER 2025-06-27 15:32 | Outpatient (AMB) | payer OTHER, SELFPAY ==
--- NOTE | 2025-06-27 15:53 | HO.NEPHOV ---
Vital Signs 06/27/25 15:54 Height 5 ft 9 in Weight 267 lb 8 oz BMI 39.5 BP 122/90 H Blood Pressure Location Lt brachial Position Sitting Pulse 79 Pulse Source Pulse Oximeter Pulse Oximetry (%) 98 Oxygen Delivery Method Room Air Intake Visit Reasons: 6mon follow-up w/labs-LVM Welding Machine Operator Electron Beam Required: Yes Welding Machine Operator Electron Beam Language: Cash Posting Representative Services: Welding Machine Operator Electron Beam Present Welding Machine Operator Electron Beam Name: Kadie [id number] Information Interpreted: clinical only Accompanied by: Self / Same As Patient Allergies No Known Allergies Allergy (Verified 06/27/25 15:54) HPI Comments Details: Anthony is a a 39-year-old male with hypertension for well over 10 years. He had been taking amlodipine 10 mg, carvedilol 12.5 mg twice, hydrochlorothiazide 25 mg and lisinopril 40 mg daily. Has been following current regimen for the past 10 years and tolerating well without side effects. He had gained some weight. He is not very strict with low sodium diet. He checks blood pressure at home and had been ranging from 150s to 160s over 100s diastolic.He had Doppler of renal arteries which did not show any renal artery stenosis. His 24 hour urine aldosterone was not very high. He has mild protein in the urine. He has no LVH. He denies edema, SOB, PND, orthopnea, BRIAN, PAD, CHF, CVA or carotid stenosis. He denies using drugs especially cocaine. His renal functions are normal . His serum K has been low on HCTZ. His cortisol and TSH are normal. He denied any sleep study yet. His BP has been better controlled since initiation of Spironolactone. [facility] Medical History (Updated 09/24/23 @ 20:57 by Stanley Sutherland MD) Essential (primary) hypertension Family History Mother Hypertension Father Diabetes Heart disease Hypertension Sister Thyroid disorder Social History Alcohol intake: never Patient Tobacco Use Status: Never used Tobacco Substance Use Type: Marijuana Review of Systems Const All systems reviewed & are unremarkable except as noted in HPI and below Physical Exam Vital Signs: Last Vital Signs Pulse 79 06/27/25 15:54 BP 122/90 H 06/27/25 15:54 Pulse Ox 98 06/27/25 15:54 Oxygen Delivery Method Room Air 06/27/25 15:54 BMI result Body Mass Index 39.5 Const General: comfortable and no acute distress Orientation/consciousness: patient oriented x3 HEENT Head: Yes normocephalic Mouth: Normal oral and palatal mucosa present Eyes EOM: EOMs intact bilaterally Neck Neck: Yes supple Resp Auscultation: clear to auscultation bilaterally Cardio Jugular venous distension: no JVD Rate: regular rate GI Palpation (GI): Soft to palpation Auscultation: normal bowel sounds General: Yes no CVA tenderness Back/Spine/Pelvis Back: no CVA tenderness Skin General skin exam: no rashes or lesions noted Neuro General: patient oriented x3 and moves all extremities Extrem General: Yes no pedal edema Results Reviewed Nephrology Results: Sodium, (135-145) 139 mmol/L 06/22/25 Potassium, (3.3-5.1) 4.3 mmol/L 06/22/25 Chloride, (96-108) 101 mmol/L 06/22/25 Carbon Dioxide, (22-29) 29 mmol/L 06/22/25 BUN, (9-16) 14 mg/dL 06/22/25 Creatinine, (0.5-1.4) 0.94 mg/dL 06/22/25 Calcium, (8.4-10.2) 10.1 mg/dL Δ 06/22/25 Assessment & Plan Assessment & Plan (1) Hypertension: Code(s): I10 - Essential (primary) hypertension Category: Medical Qualifiers: Hypertension type: primary hypertension Qualified Code(s): I10 - Essential (primary) hypertension Plan Low sodium diet; Weight loss; C/W current dose of antihypertensive medications for now. C/W Spironolactone 25 mg daily along with rest of his current medications .Will benefit from sleep study. Will increase Spironolactone if BP remains high. Answered all questions. Follow up lab ordered; F/U given Orders: Orders Creatinine 6 Months I10 - Essential (primary) hypertension Protein Creatinine Ratio, Ur 6 Months I10 - Essential (primary) hypertension Electrolytes 6 Months I10 - Essential (primary) hypertension Blood Urea Nitrogen 6 Months I10 - Essential (primary) hypertension Coding Level of Care Code Est Pt Level 4 (60850) Diagnoses Primary hypertension I10 Hypertension type: primary hypertension
[2025-06-27 15:54] VITALS: BP 122/90; PULSE 79; O2SAT 98; BMI 39.5
--- OUTSIDE RECORDS SUMMARY | 2025-06-27 16:33 | XMS_ITS | Clinical Summary ---
Author Organization [facility] Address [address] [place] [phone] Phone Care Team Providers Care Automatic Riveting Machine Operator Name Role Phone Physician, No Pcp Primary [...] topic Insurance MEDICAID - [place] Care Teams Automatic Riveting Machine Operator Relationship Specialty Start Date End Date Physician, No Pcp PCP - General 10/21/24
== END 2025-06-27 16:27 | disposition home or self-care (01) ==
LOC: HO.HKAS 15:33
PROVIDERS: PCP Internal Medicine; Visit Provider Internal Medicine Nephrology
DX: I10 Essential (primary) hypertension (principal)
CPT/HCPCS: 99214

== ENCOUNTER → 2025-06-27 15:32 | Outpatient (BNVA) | payer OTHER, SELFPAY | PROVIDERS: PCP Internal Medicine; Visit Provider Internal Medicine Nephrology | DX: I10 Essential (primary) hypertension (principal) | CPT/HCPCS: 99212 ==